=== PATIENT | female | born 1945 | race Caucasian/White ===

== ENCOUNTER → 2021-02-12 | Outpatient (CLI) | payer OTHER ==
[~2021-02-12] MED LIST: ASPIR 8181 MG PO; CARDIZEM CD240 MG PO; HYDROCODON-ACE1 EAC4 PO; LEVEMIR100 UNIT/1 SC; MAG-OX 400 TAB400 MG PO; NOVOLOG 10100 UNITS/ SC; PRILOSEC20 MG PO; TOPROL XL100 MG PO; XANAX0.5 MG PO; [UNRECOGNIZED DRUG - OTHER] PO
== END ==
LOC: KOH-I 11:44
DX: M79.604 Pain in right leg (principal); M79.605 Pain in left leg; M17.0 Bilateral primary osteoarthritis of knee
CPT/HCPCS: 73562; 73590

== ENCOUNTER → 2021-03-04 | Outpatient (CLI) | payer OTHER ==
[2021-03-04 16:50] LABS: HEMOGLOBIN 13.6 gm/dl (12.3-15.3); RED BLOOD COUNT 4.28 M/UL (4.00-5.10)
== END ==
LOC: LAB 15:38
PROVIDERS: Nurse Practitioner Family
DX: E11.9 Type 2 diabetes mellitus without complications (principal); E78.5 Hyperlipidemia, unspecified; F41.9 Anxiety disorder, unspecified; E55.9 Vitamin D deficiency, unspecified; E83.42 Hypomagnesemia
CPT/HCPCS: 36415; 80053; 80061; 82043; 82570; 83735; 84439; 84443; 85025

== ENCOUNTER 2021-05-15 16:30 | Observation (INO) | payer OTHER ==
[~2021-05-15] VITALS: Ht 167.6 cm; Wt 117.9 kg
[~2021-05-15 16:30] MED LIST changes: -HYDROCODON-ACE1 EAC4 PO
[2021-05-15 17:40] LABS: HEMOGLOBIN 14.8 gm/dl (12.3-15.3); RED BLOOD COUNT 4.81 M/UL (4.00-5.10); WHITE BLOOD COUNT 18.5 K/UL (4.5-11.0)
[2021-05-16] MEDS ORDERED: ALPRAZOLAM1 MG PO (08:42)
[2021-05-16] MEDS ORDERED: EDARBI80 MG PO (08:45)
[2021-05-16] MEDS ORDERED: BACTROBAN OINT22 GM EXT (08:45)
[2021-05-16] MEDS ORDERED: GABAPENTIN100 MG PO (08:46)
[2021-05-16] MEDS ORDERED: VITAMIN D31250 MCG PO (08:48)
[2021-05-16] MEDS ORDERED: TRESIBA FL100 UNIT/1 SQ (08:49)
[2021-05-16] MEDS ORDERED: FAMOTIDINE20 MG PO (08:50)
[2021-05-16] MEDS ORDERED: MELATONIN3 MG PO (08:51)
[2021-05-16] MEDS ORDERED: HYGROTON TAB 2525 MG PO (13:48)
[2021-05-16] MEDS ORDERED: ISMO TAB 20 MG20 MG PO (13:48)
[2021-05-16] MEDS ORDERED: NITROGLYCERIN0.4 MG SL (13:48)
[2021-05-16] MEDS ORDERED: HYDROCODON-ACE1 EAC4 PO (15:15)
== END 2021-05-16 20:40 | disposition home or self-care (01) ==
LOC: ER1 16:30 → CDU 22:05 → M/S 05-16 08:59
PROVIDERS: Emergency Medicine; ADMIT Internal Medicine
DX: R07.89 Other chest pain (principal); I16.0 Hypertensive urgency; I11.9 Hypertensive heart disease without heart failure; E11.40 Type 2 diabetes mellitus with diabetic neuropathy, unspecified; F41.9 Anxiety disorder, unspecified; G89.29 Other chronic pain; E83.42 Hypomagnesemia; E66.01 Morbid (severe) obesity due to excess calories; Z68.41 Body mass index [BMI] 40.0-44.9, adult; Z20.822 Contact with and (suspected) exposure to COVID-19; Z79.4 Long term (current) use of insulin; Z79.890 Hormone replacement therapy; Z79.899 Other long term (current) drug therapy; Z88.2 Allergy status to sulfonamides; Z88.5 Allergy status to narcotic agent; Z88.8 Allergy status to other drugs, medicaments and biological substances; Z91.041 Radiographic dye allergy status
CPT/HCPCS: ECHO; 36415; 71045; 80048; 80053; 80061; 80307; 81001; 82550; 82553; 82607; 82728; 82962; 83036; 83735; 83880; 84100; 84439; 84443; 84484; 84550; 85025; 85379; 85610; 86140; 87086; 93005; 93306; 99285; G0378; U0002

== ENCOUNTER → 2021-06-25 | Outpatient (CLI) | payer OTHER ==
[~2021-06-25] MED LIST changes: +ALPRAZOLAM1 MG PO; +BACTROBAN OINT22 GM EXT; +EDARBI80 MG PO; +FAMOTIDINE20 MG PO; +GABAPENTIN100 MG PO; +HYDROCODON-ACE1 EAC4 PO; +HYGROTON TAB 2525 MG PO; +ISMO TAB 20 MG20 MG PO; +MELATONIN3 MG PO; +NITROGLYCERIN0.4 MG SL; +TRESIBA FL100 UNIT/1 SQ; +VITAMIN D31250 MCG PO
== END ==
LOC: KOH-I 05-23 14:30
DX: M17.0 Bilateral primary osteoarthritis of knee (principal); M17.12 Unilateral primary osteoarthritis, left knee; M94.262 Chondromalacia, left knee; S83.282A Other tear of lateral meniscus, current injury, left knee, initial encounter; S83.242A Other tear of medial meniscus, current injury, left knee, initial encounter; M65.9 Synovitis and tenosynovitis, unspecified; X58.XXXA Exposure to other specified factors, initial encounter
CPT/HCPCS: 73721